=== PATIENT | female | born 1960 | race Caucasian/White ===

== ENCOUNTER 2017-10-20 11:56 | Emergency (ER) | payer MEDICARE, MEDICAID ==
[2017-10-20 12:00] VITALS: BMI 29.7
[2017-10-20] MEDS: Albuterol-Ipratrop 3 mg / 0.5 (3 ml) UD IH SCH ×3 (13:23→13:42)
[2017-10-20] MEDS ORDERED: Albuterol-Ipratrop 3 mg / 0.5 (3 ml) UD ONE (13:24)
--- NOTE | 2017-10-20 13:47 | ED PDOC ---
HPI: CCC, URI, Sore Throat Time Seen by Provider: 10/20/17 12:31 Chief Complaint (Nursing): Flu-like Symptoms Chief Complaint (Provider): flu-like symptoms History Per: Patient History/Exam Limitations: no limitations Onset/Duration Of Symptoms: Days (x3) Current Symptoms Are (Timing): Still Present Additional Complaint(s): 57 year old female with medical history of asthma, hypertension and HIV, who presents to the emergency department with a complaint of flu-like symptoms including fever, chills, cough, congestion, sore throat and wheezing ongoing for 3 days. Denied any chest pain, nausea, vomiting or recent travel. PMD: Kennedy Lyman MD Past Medical History Reviewed: Historical Data, Nursing Documentation, Vital Signs Vital Signs: Last Vital Signs Temp 98.2 F 10/20/17 14:40 Pulse 90 10/20/17 14:40 Resp 16 10/20/17 14:40 BP 134/88 10/20/17 14:40 Pulse Ox 95 10/20/17 14:44 - Medical History PMH: Asthma, HIV, HTN, Hypothyroidism, Seizures (LAST EPISOD 7 YRS AGO) Denies: Chronic Kidney Disease - Family History Family History: States: Unknown Family Hx - Home Medications Home Medications: Ambulatory Orders Medication Instructions Recorded Fluticasone/Salmeterol 250/50 1 dsk IH Q6 PRN 09/03/15 [Advair Diskus] Losartan [Cozaar] 50 mg PO DAILY 09/03/15 Omeprazole [Prilosec] 20 mg PO DAILY 09/03/15 Docusate [Colace] 1 mg PO Q8 PRN 09/12/15 Aspirin [Aspirin Chewable] 81 mg PO DAILY 07/29/16 Levetiracetam [Keppra Xr] 500 mg PO DAILY 07/29/16 Montelukast Sodium [Singulair] 10 mg PO DAILY 07/29/16 Topiramate [Trokendi Xr] 50 mg PO DAILY 07/29/16 Guaifenesin 400 mg PO QID #20 tablet 10/20/17 Ibuprofen [Motrin Tab] 600 mg PO QID PRN #20 tab 10/20/17 predniSONE [predniSONE Tab] 40 mg PO DAILY #8 tab 10/20/17 - Allergies Allergies/Adverse Reactions: Allergies Allergy/AdvReac Type Severity Reaction Status Date / Time No Known Allergies Allergy Verified 10/20/17 12:00 Review of Systems ROS Statement: Except As Marked, All Systems Reviewed And Found Negative Constitutional: Positive for: Fever, Chills ENT: Positive for: Nose Congestion, Throat Pain Cardiovascular: Negative for: Chest Pain Respiratory: Positive for: Cough, Wheezing Gastrointestinal: Negative for: Nausea, Vomiting Physical Exam - Reviewed Nursing Documentation Reviewed: Yes Vital Signs Reviewed: Yes - Physical Exam Appears: Positive for: Well, Non-toxic, No Acute Distress Skin: Positive for: Normal Color, Warm, Dry ENT: Positive for: Normal ENT Inspection, Pharynx Is (within normal limits), TM Is/Are (normal, no erythema). Negative for: Pharyngeal Erythema, Tonsillar Exudate Cardiovascular/Chest: Positive for: Regular Rate, Rhythm, Chest Non Tender Respiratory: Positive for: Decreased Breath Sounds, Wheezing (expiratory bilaterally). Negative for: Normal Breath Sounds, Crackles, Rales, Rhonchi Gastrointestinal/Abdominal: Positive for: Normal Exam, Soft. Negative for: Tenderness Extremity: Positive for: Normal ROM (upper/lower). Negative for: Pedal Edema ( bilateral), Calf Tenderness (bilateral) Lymphatic: Negative for: Adenopathy Neurologic/Psych: Positive for: Alert (x3), cyber intelligence analyst II-XII (intact), Oriented - ECG O2 Sat by Pulse Oximetry: 95 (RA) Pulse Ox Interpretation: Normal Medical Decision Making Medical Decision Making: Initial Impression: Flu-like symptoms Initial Plan: * CXR * Duoneb 3ml INH [id number] * Prednisone 60mg PO * Influenza A B ____ Time: 1309 Rapid flu: positive for influenza B CXR: NAD, as read by PA On reevaluation, patient is resting comfortably in no acute distress, breathing easy and unlabored, speaking in full sentences. Patient is afebrile, not tachycardic with a normal pulse ox. On exam, lungs are clear to auscultation, with resolution of wheezing, no rhonchi, no rales. Diagnostic results discussed with the patient in great detail. Diagnosis of influenza discussed with the patient. Considering that the patient has had her symptoms for the past 3 days, prescription for Tamiflu was not given to the patient. Patient was advised to drink plenty of fluids, bedrest, Tylenol or Motrin for fever and pain. Advised to take her nebulizer every 4-6 hours as needed for cough and wheezing. Otherwise the patient was instructed to follow up with primary care physician in 1-2 days without fail. Advised to take medication as prescribed. Return to the emergency room at any time for any new or worsening symptoms. Patient states she fully agrees with and understands discharge instructions. States that she agrees with the plan and disposition. Verbalized and repeated discharge instructions and plan. I have given the patient opportunity to ask any additional questions. Scribe Attestation: Documented by Sosa Murphy, acting as a scribe for Pauly Tapia PA-C. Provider Scribe Attestation: All medical record entries made by the Scribe were at my direction and personally dictated by me. I have reviewed the chart and agree that the record accurately reflects my personal performance of the history, physical exam, medical decision making, and the department course for this patient. I have also personally directed, reviewed, and agree with the discharge instructions and disposition. Disposition - Clinical Impression Clinical Impression: Influenza, Asthma - Patient ED Disposition Is Patient to be Admitted: No Counseled Patient/Family Regarding: Studies Performed, Diagnosis, Need For Followup, Rx Given - Disposition Disposition: Routine/Home Disposition Time: 14:30 Condition: IMPROVED Additional Instructions: Thank you for letting us take care of you today. You were treated for influenza , asthma. The emergency medical care you received today was directed at your acute symptoms. If you were prescribed any medication, please fill it and take as directed. It may take several days for your symptoms to resolve. Return to the Emergency Department if your symptoms worsen, do not improve, or if you have any other problems. Please contact your doctor in 2 days for re-evaluation and follow up. Bring any paperwork you were given at discharge with you along with any medications you are taking to your follow up visit. Our treatment cannot replace ongoing medical care by a primary care provider (PCP) outside of the emergency department. Thank you for allowing the [facility] team to be part of your care today. Prescriptions: Guaifenesin 400 mg PO QID #20 tablet Ibuprofen [Motrin Tab] 600 mg PO QID PRN #20 tab PRN Reason: Pain, Moderate (4-7) predniSONE [predniSONE Tab] 40 mg PO DAILY #8 tab Instructions: Asthma (ED), Influenza (ED) Forms: [employer] (Tunisian), [employer] ED School/Work Excuse Print Language: BURKINAN - PA / SALT MANAGER / Resident Statement MD/DO has reviewed & agrees with the documentation as recorded.
[2017-10-20 14:41] VITALS: BP 134/88; PULSE 90; RESP 16; TEMP 98.2
[2017-10-20 14:43] VITALS: O2SAT 95
--- NOTE | 2017-10-20 15:53 | RAD ---
HISTORY: cough COMPARISON: Chest radiograph dated 09/11/2015. TECHNIQUE: Chest PA and lateral FINDINGS: LUNGS: Similar appearance of scattered tiny bilateral nodular densities. No active pulmonary disease. PLEURA: No significant pleural effusion identified. No pneumothorax apparent. CARDIOVASCULAR: Atherosclerotic aortic calcifications. Cardiomediastinal silhouette within normal limits. OSSEOUS STRUCTURES: Unchanged. VISUALIZED UPPER ABDOMEN: Normal. OTHER FINDINGS: Right internal jugular access chest port, unchanged. IMPRESSION: No acute pulmonary disease. Similar appearance of scattered bilateral tiny nodular densities. These can be further evaluated with CT scan of the chest as clinically warranted.
== END 2017-10-20 14:52 | disposition home or self-care (01) ==
LOC: H.ER 11:56
DX: J45.909 Unspecified asthma, uncomplicated (principal); J10.1 Influenza due to other identified influenza virus with other respiratory manifestations; E03.9 Hypothyroidism, unspecified; I10 Essential (primary) hypertension; Z79.82 Long term (current) use of aspirin

== ENCOUNTER 2018-05-12 16:14 | Emergency (ER) | payer MEDICARE, MEDICAID ==
[2018-05-12 16:15] VITALS: BMI 29.7
[2018-05-12 16:31] VITALS: BP 162/96; PULSE 89; RESP 18; TEMP 98.3; O2SAT 95
--- NOTE | 2018-05-12 16:52 | ED PDOC ---
HPI: Abdomen Time Seen by Provider: 05/12/18 16:43 Chief Complaint (Nursing): GI Problem History Per: Patient Onset/Duration Of Symptoms: Days (2) Current Symptoms Are (Timing): Still Present Severity: Mild Location Of Pain/Discomfort: Suprapubic Quality Of Discomfort: Cramping Associated Symptoms: Diarrhea. denies: Nausea, Vomiting Additional Complaint(s): Crampy lower abd pain assoc with rectal bleeding since yesterday. No fever Past Medical History Vital Signs: Last Vital Signs Temp 98.3 F 05/12/18 16:27 Pulse 89 05/12/18 16:27 Resp 18 05/12/18 16:27 BP 162/96 H 05/12/18 16:27 Pulse Ox 95 05/12/18 16:52 - Medical History PMH: Asthma, HIV, HTN, Hypothyroidism, Seizures (LAST EPISOD 7 YRS AGO) Denies: Chronic Kidney Disease - Family History Family History: States: Unknown Family Hx - Home Medications Home Medications: Ambulatory Orders Medication Instructions Recorded Fluticasone/Salmeterol 250/50 1 dsk IH Q6 PRN 09/03/15 [Advair Diskus] Losartan [Cozaar] 50 mg PO DAILY 09/03/15 Omeprazole [Prilosec] 20 mg PO DAILY 09/03/15 Docusate [Colace] 1 mg PO Q8 PRN 09/12/15 Aspirin [Aspirin Chewable] 81 mg PO DAILY 07/29/16 Levetiracetam [Keppra Xr] 500 mg PO DAILY 07/29/16 Montelukast Sodium [Singulair] 10 mg PO DAILY 07/29/16 Topiramate [Trokendi Xr] 50 mg PO DAILY 07/29/16 Guaifenesin 400 mg PO QID #20 tablet 10/20/17 Ibuprofen [Motrin Tab] 600 mg PO QID PRN #20 tab 10/20/17 predniSONE [predniSONE Tab] 40 mg PO DAILY #8 tab 10/20/17 Ciprofloxacin HCl [Cipro] 500 mg PO BID #20 tab 05/12/18 Dicyclomine [Dicyclomine HCl] 10 mg PO Q8 #10 cap 05/12/18 Metronidazole [Flagyl] 500 mg PO Q8 #30 tablet 05/12/18 - Allergies Allergies/Adverse Reactions: Allergies Allergy/AdvReac Type Severity Reaction Status Date / Time No Known Allergies Allergy Verified 05/12/18 16:29 Review of Systems ROS Statement: Except As Marked, All Systems Reviewed And Found Negative Constitutional: Negative for: Fever Gastrointestinal: Positive for: Abdominal Pain, Hematochezia Physical Exam - Reviewed Nursing Documentation Reviewed: Yes Vital Signs Reviewed: Yes - Physical Exam Appears: Positive for: Non-toxic, No Acute Distress Head Exam: Positive for: ATRAUMATIC, NORMAL INSPECTION, NORMOCEPHALIC Skin: Positive for: Normal Color, Warm, DRY Eye Exam: Positive for: EOMI, Normal appearance, PERRL ENT: Positive for: Normal ENT Inspection Neck: Positive for: Normal, Painless ROM Cardiovascular/Chest: Positive for: Regular Rate, Rhythm Respiratory: Positive for: CNT, Normal Breath Sounds Gastrointestinal/Abdominal: Positive for: Soft, Tenderness (suprapubic) Back: Positive for: Normal Inspection Extremity: Positive for: Normal ROM Neurologic/Psych: Positive for: Alert, Oriented - Laboratory Results Result Diagrams: 05/12/18 17:50 05/12/18 17:50 - ECG O2 Sat by Pulse Oximetry: 95 Disposition - Clinical Impression Clinical Impression: Colitis - Patient ED Disposition Is Patient to be Admitted: No Counseled Patient/Family Regarding: Studies Performed, Diagnosis, Need For Followup, Rx Given - Disposition [facility]errals: [facility] [Outside] Disposition: Routine/Home Disposition Time: 18:57 Condition: FAIR Prescriptions: Ciprofloxacin HCl [Cipro] 500 mg PO BID #20 tab Dicyclomine [Dicyclomine HCl] 10 mg PO Q8 #10 cap Metronidazole [Flagyl] 500 mg PO Q8 #30 tablet Instructions: Ulcerative Colitis in Adults Forms: [employer] (Turkmen)
[2018-05-12] MEDS ORDERED: Sodium Chloride 0.9% 50 ML IV ONE (17:50)
[2018-05-12] MEDS ORDERED: Iohexol 300 100 ML IJ ONE (17:50)
[2018-05-12 18:03] LABS: BASO % 0.5 % (0.0-2.0); EOS # 0.2 K/uL (0.0-0.7); EOS % 2.3 % (0.0-4.0); HEMOGLOBIN 15.3 g/dL (12.0-16.0); LYMPH # 1.6 K/uL (1.0-4.3); LYMPH % 17.1 % (20.0-40.0); MEAN CELL VOLUME 92.5 fl (81.0-99.0); MEAN CORPUSCULAR HEMOGLOBIN 30.8 pg (27.0-31.0); MEAN CORPUSCULAR HGB CONC 33.3 g/dL (33.0-37.0); MEAN PLATELET VOLUME 10.9 fl (7.2-11.7); MONO # 0.9 K/uL (0.0-0.8); MONO % 9.6 % (0.0-10.0); NEUT # 6.5 K/uL (1.8-7.0); NEUT % 70.5 % (50.0-75.0); NRBC % 0.1 % (0.0-0.0); RBC 4.98 Mil/uL (3.80-5.20); WHITE BLOOD COUNT 9.1 K/uL (4.8-10.8)
[2018-05-12 18:14] LABS: ALB/GLOB RATIO 1.4 (1.0-2.1); ALBUMIN 4.5 g/dL (3.5-5.0); ALT/SGPT 35 U/L (9-52); AST/SGOT 44 U/L (14-36); BLOOD UREA NITROGEN 26 mg/dl (7-17); CALCIUM 9.4 mg/dL (8.4-10.2); GFR AFRICAN-AMERICAN > 60; GFR NON-AFRICAN AMERICAN 51
--- NOTE | 2018-05-12 18:52 | CT ---
Date of service: 05/12/2018 PROCEDURE: CT Abdomen and Pelvis with contrast HISTORY: Abd pain COMPARISON: Comparison is made with the previous study dated 04/02/2009 TECHNIQUE: Contrast dose: 95 cc of Omnipaque 300. Axial and reformatted coronal and sagittal CT images of the abdomen and pelvis were obtained after IV contrast administration. Radiation dose: Total exam DLP = 642.23 mGy-cm. This CT exam was performed using one or more of the following dose reduction techniques: Automated exposure control, adjustment of the mA and/or kV according to patient size, and/or use of iterative reconstruction technique. FINDINGS: LOWER THORAX: No evidence of acute pathology or pleural effusion LIVER: Unremarkable. No gross lesion or ductal dilatation. GALLBLADDER AND BILE DUCTS: Unremarkable. PANCREAS: Unremarkable. No gross lesion or ductal dilatation. SPLEEN: Unremarkable. ADRENALS: Unremarkable. No mass. KIDNEYS AND URETERS: Unremarkable. No hydronephrosis. No solid mass. Again noted is cyst at the upper pole of the right kidney measures 1.7 centimeter. VASCULATURE: Unremarkable. No aortic aneurysm. BOWEL: There is diffuse thickening of the descending and sigmoid colon consistent with acute left colitis. No evidence of small bowel obstruction. APPENDIX: No evidence of appendicitis. PERITONEUM: Unremarkable. No free fluid. No free air. LYMPH NODES: Unremarkable. No enlarged lymph nodes. BLADDER: Unremarkable. REPRODUCTIVE: Unremarkable. BONES: No acute fracture. OTHER FINDINGS: None. IMPRESSION: Diffuse wall thickening of the descending and sigmoid colon and proximal rectum consistent with left colitis. The differential consideration includes infection inflammatory or less likely ischemic colitis. Otherwise no evidence of acute pathology in the abdomen and pelvis.
== END 2018-05-12 19:05 | disposition home or self-care (01) ==
LOC: H.ER 16:14
DX: K52.9 Noninfective gastroenteritis and colitis, unspecified (principal); E03.9 Hypothyroidism, unspecified; I10 Essential (primary) hypertension
CPT/HCPCS: 74177; 80053; 85025; 87040; 99283; Q9967